=== PATIENT | female | born 1995 | race Caucasian/White ===

== ENCOUNTER 2022-04-12 00:14 | Emergency (ER) | payer OTHER ==
[2022-04-12 00:59] VITALS: RESP 18
[2022-04-12] MEDS ORDERED: LIDOCAINE 1% INJ 10MG/ML (20 ML MDV) SQ ONE (01:36)
[2022-04-12] MEDS ORDERED: IBUPROFEN 800 MG TAB PO STA (01:38)
--- NOTE | 2022-04-12 01:43 | ED ---
Skin/Abscess/FB HPI - General Chief complaint: Skin/Abscess/Foreign Body Stated complaint: Side Abscess/boil Time Seen by Provider: 04/12/22 01:28 Source: patient, family, RN notes reviewed, old records reviewed Mode of arrival: ambulatory Limitations: no limitations - History of Present Illness Initial comments: This is a well-appearing 26 year old female that presents to the emergency room with an abscess under her left breast that has been present for 4 weeks. She has been to multiple doctors and was prescribed topical antibiotic ointment with no improvement. She states that it started to drain and has become increasingly red and painful. Patient denies any fevers, no nausea vomiting or diarrhea. She does have a history of axillary abscesses , has never been diagnosed with hydradenitis. MD complaint: abscess/boil (under left breast) -: week(s) (4) Tetanus Up to Date: yes Severity scale (1-10): 4 Quality: constant Consistency: constant Improves with: none Worsens with: other (palpation) Associated symptoms: denies other symptoms Treatments Prior to Arrival: attempted to drain pus at home, other (Topical antibiotic) - Related Data Previous Rx's Medication Instructions Recorded Sulfamethox-Tmp 800-160Mg [Bactrim 1 each PO Q12HR 7 Days #14 tab 04/12/22 Ds] Allergies Allergy/AdvReac Type Severity Reaction Status Date / Time latex Allergy Unknown Verified 04/12/22 01:44 Review of Systems ROS Statement: Those systems with pertinent positive or pertinent negative responses have been documented in the HPI. ROS Other: All systems not noted in ROS Statement are negative. Past Medical History Past Medical History: Diabetes Mellitus, GERD/Reflux, Hypertension History of Any Multi-Drug Resistant Organisms: None Reported Past Surgical History: Adenoidectomy, Ear Surgery, Tonsillectomy Additional Past Surgical History / Comment(s): lymph node removal Past Psychological History: Anxiety, Depression Smoking Status: Never smoker Past Alcohol Use History: Rare Past Drug Use History: Marijuana General Exam Limitations: no limitations General appearance: alert, in no apparent distress Head exam: Present: atraumatic Respiratory exam: Absent: respiratory distress, accessory muscle use Cardiovascular Exam: Present: tachycardia Neurological exam: Present: alert, oriented X3 Psychiatric exam: Present: normal affect, normal mood Skin exam: Present: warm, dry, erythema, other (Abscess under left breast 7 cm by 5 cm purulent drainage) Course Vital Signs 04/12/22 04/12/22 00:54 02:19 Temperature 98.0 F 98.7 F Pulse Rate 114 H 100 Respiratory 18 18 Rate Blood Pressure 155/107 145/102 O2 Sat by Pulse 99 99 Oximetry Procedures - Incision & Drainage Consent Obtained: verbal consent Site: chest Anesthetic Used: lidocaine 1% I&D Cleaning Method: Betadine Scalpel Used: #11 I&D Drainage Obtained: Pus, Blood Culture Obtained?: Yes Patient Tolerated Procedure: well, no complications Medical Decision Making - Medical Decision Making Incision and drainage was performed to the abscess, culture was sent. Patient will be placed on Bactrim and directed to follow-up with her primary care doctor next week. Encouraged her to use warm moist compresses multiple times throughout the day to promote drainage. She was directed to return with any new or concerning symptoms including increased pain, swelling or fevers. Patient states that she is visiting from [place]. I did encourage her to follow up with a body technician for further evaluation and possible hidradenitis. She is agreeable to this plan of care. Case discussed with Dr. Lo. Disposition Clinical Impression: Abscess, Encounter for incision and drainage procedure Disposition: HOME SELF-CARE Condition: Good Instructions (If sedation given, give patient instructions): Abscess Incision and Drainage (ED) Additional Instructions: Take antibiotics as prescribed and follow-up with the primary care doctor next week. Use warm moist compresses multiple times daily to promote drainage. Tylenol and/or Motrin as needed for pain. Return to the emergency room with any new or concerning symptoms including increased pain, swelling or fevers. Prescriptions: Sulfamethox-Tmp 800-160Mg [Bactrim Ds] 1 each PO Q12HR 7 Days #14 tab Is patient prescribed a controlled substance at d/c from ED?: No Referrals: Nonstaff,Physician [Primary Care Provider] - 1-2 days Time of Disposition: 01:56
[2022-04-12 02:20] VITALS: BP 145/102; PULSE 100; TEMP 98.7
== END 2022-04-12 02:20 | disposition home or self-care (01) ==
LOC: EC 00:14
DX: Z48.00 Encounter for change or removal of nonsurgical wound dressing (principal); N61.1 Abscess of the breast and nipple; E11.9 Type 2 diabetes mellitus without complications; I10 Essential (primary) hypertension; Z91.040 Latex allergy status
CPT/HCPCS: 87070; 87205; 10060; 99282; J2001; 87077; 87186